=== PATIENT | female | born 1970 | race American Indian/Alaskan Native ===

== ENCOUNTER 2023-12-22 20:09 | Inpatient (IN) ==
[2023-12-22] MEDS ORDERED: IOPAMIDOL 100 ML BOTTLE IV ONE (20:10)
[2023-12-22] MEDS: IPRATROPIUM/ALBUTEROL 3 ML AMPUL.NEB NEB ONE ×2 (20:20→20:40)
[2023-12-22] MEDS: ONDANSETRON 4 MG/2 ML VIAL IV ONE (20:27)
[2023-12-22] MEDS: methylPREDNISolone SOD SUCC 125 MG/2 ML VIAL IV ONE (20:28)
[2023-12-22] MEDS: ALBUTEROL SULFATE 2.5 MG/3 ML NEBULIZER NEB ONE (20:40)
[2023-12-22 21:09] LABS: ALT/SGPT 5 U/L (<40); AST/SGOT 17 U/L (<32); Albumin 4.2 gm/dL (3.2-5.2); Albumin/Globulin Ratio 1.8 (1.0-2.3); Alkaline Phosphatase 90 U/L (39-117); Bilirubin,Total 0.4 mg/dL (0.1-1.0); Blood Urea Nitrogen 8 mg/dL (6-20); Calcium 8.6 mg/dL (8.6-10.4); Carbon Dioxide 24 mmol/L (22-30); Chloride 104 mmol/L (96-108); Globulin 2.4 gm/dL (2.2-3.7); Glomerular Filtration Rate 110; Glucose 98 mg/dL (70-105)
[2023-12-22 21:19] LABS: Basophils # (Auto) 0.09 K/mcL (0.00-0.30); Eosinophils # (Auto) 1.16 K/mcL (0.00-0.70); Eosinophils % (Auto) 12.2 % (0.0-7.0); Hematocrit 42.8 % (34.1-44.9); Hemoglobin 13.9 g/dL (11.2-15.7); Lymphocytes # (Auto) 2.75 K/mcL (1.50-4.80); Mean Cell Volume 91.3 fL (80.0-100.0); Mean Corpuscular HGB Conc 32.5 g/dL (31.0-36.0); Mean Platelet Volume 8.3 fL (8.8-12.5); Monocytes # (Auto) 0.76 K/mcL (0.10-0.90); Neutrophils % (Auto) 49.7 % (38.0-78.0); Platelet Count 272 K/mcL (140-440); RBC 4.69 M/mcL (3.59-5.38); Red Cell Distribution Width 13.3 % (11.5-14.5); WBC 9.5 K/mcL (4.5-11.0)
[2023-12-22] MEDS: morphine 4 MG/ML VIAL IV ONE (22:12)
[2023-12-22] MEDS: LACTATED RINGERS 1,000 ML IV ONE (23:10)
[2023-12-22] MEDS ORDERED: LACTULOSE 20 GM/30 ML ORAL.SOL PO PRN (23:59)
[2023-12-22] MEDS ORDERED: SENNOSIDES 1 TABLET PO PRN (23:59)
[2023-12-23] MEDS: DOXYCYCLINE 100 MG in DEXTROSE 5% IN WATER 100 ML IV SCH (00:13)
[2023-12-23] MEDS: IPRATROPIUM/ALBUTEROL 3 ML AMPUL.NEB NEB PRN (01:27)
[2023-12-23] MEDS: DEXTROSE 5% IN WATER 100 ML IV ONE (01:48)
[2023-12-23] MEDS: NICOTINE 14 MG PATCH ONE (02:12)
[2023-12-23] MEDS: NICOTINE 14 MG PATCH TOPICAL ONE (02:42)
[2023-12-23] MEDS: ACETAMINOPHEN 325 MG TABLET PO PRN (04:07)
[2023-12-23] MEDS: ONDANSETRON 4 MG/2 ML VIAL IV PRN ×2 (04:13→22:12)
[2023-12-23] MEDS: 0.9 % SODIUM CHLORIDE 10 ML SYRINGE IV SCH (06:07)
[2023-12-23] MEDS ORDERED: POLYETHYLENE GLYCOL 3350 17 GM PACKET PO PRN (08:13)
[2023-12-23] MEDS ORDERED: MAGNESIUM SULFATE 2 GM/50 ML BAG IV PRN (08:13)
[2023-12-23] MEDS ORDERED: SENNOSIDES 1 TABLET PO PRN (08:13)
[2023-12-23] MEDS ORDERED: POTASSIUM CHLORIDE 20 MEQ TABLET PO PRN ×2 (08:13)
[2023-12-23] MEDS ORDERED: POTASSIUM CHLORIDE 40 MEQ in DEXTROSE 5% IN WATER 500 ML IV PRN (08:13)
[2023-12-23] MEDS: DOCUSATE SODIUM 100 MG CAPSULE PO SCH (08:42)
[2023-12-23] MEDS: ENOXAPARIN 40 MG/0.4 ML SYRINGE SQ SCH (08:42)
[2023-12-23] MEDS: methylPREDNISolone SOD SUCC 125 MG/2 ML VIAL IV SCH (08:42)
[2023-12-23] MEDS: BUDESONIDE 0.5 MG/2 ML AMPUL.NEB NEB SCH (08:52)
[2023-12-23 09:35] LABS: ALT/SGPT 5 U/L (<40); AST/SGOT 16 U/L (<32); Albumin 4.2 gm/dL (3.2-5.2); Albumin/Globulin Ratio 1.7 (1.0-2.3); Alkaline Phosphatase 91 U/L (39-117); Bilirubin,Direct < 0.2 mg/dL (0-0.3); Bilirubin,Total 0.3 mg/dL (0.1-1.0); Blood Urea Nitrogen 7 mg/dL (6-20); Calcium 8.7 mg/dL (8.6-10.4); Carbon Dioxide 23 mmol/L (22-30); Chloride 102 mmol/L (96-108); Globulin 2.5 gm/dL (2.2-3.7); Glomerular Filtration Rate 103; Glucose 219 mg/dL (70-105); Lactate Dehydrogenase 177 U/L (135-225); Phosphorous 3.8 mg/dL (2.5-4.5); Triglycerides 26 mg/dL (<150)
[2023-12-23] MEDS: HYDROcodone/APAP 5/325MG TABLET PO PRN (11:18)
[2023-12-23] MEDS: NICOTINE 21 MG PATCH TOPICAL SCH (11:18)
[2023-12-23] MEDS: IPRATROPIUM/ALBUTEROL 3 ML AMPUL.NEB NEB SCH (12:50)
[2023-12-23] MEDS: MONTELUKAST 10 MG TABLET PO SCH (20:52)
[2023-12-23] MEDS: FAMOTIDINE 20 MG TABLET PO SCH (22:16)
[2023-12-23] MEDS: METOPROLOL TARTRATE 25 MG TABLET PO ONE (22:16)
[2023-12-23] MEDS: FAMOTIDINE 20 MG TABLET PO ONE (22:18)
[2023-12-23] MEDS: METOPROLOL TARTRATE 25 MG TABLET ONE (22:18)
[2023-12-23] MEDS: LORazepam 2 MG/ML VIAL IV PRN (22:32)
[2023-12-23] MEDS: LORazepam 2 MG/ML VIAL ONE (22:36)
[2023-12-24 06:40] LABS: ALT/SGPT 5 U/L (<40); AST/SGOT 12 U/L (<32); Albumin/Globulin Ratio 1.7 (1.0-2.3); Alkaline Phosphatase 82 U/L (39-117); Bilirubin,Direct < 0.2 mg/dL (0-0.3); Bilirubin,Total < 0.2 mg/dL (0.1-1.0); Blood Urea Nitrogen 13 mg/dL (6-20); Calcium 8.8 mg/dL (8.6-10.4); Carbon Dioxide 26 mmol/L (22-30); Chloride 103 mmol/L (96-108); Globulin 2.4 gm/dL (2.2-3.7); Glomerular Filtration Rate 103; Glucose 184 mg/dL (70-105); Lactate Dehydrogenase 188 U/L (135-225); Phosphorous 4.1 mg/dL (2.5-4.5); Triglycerides 77 mg/dL (<150); Uric Acid 3.1 mg/dL (2.5-8.0)
[2023-12-24] MEDS: methylPREDNISolone SOD SUCC 40 MG/ML VIAL IV SCH (09:05)
[2023-12-24] MEDS: FLUZONE QUAD QS2023-24/PF 60 MCG/0.5 ML SYRINGE IM ONE (11:54)
[2023-12-25] MEDS ORDERED: ALBUTEROL SULFATE 2.5 MG/3 ML NEBULIZER NEB PRN (09:23)
[2023-12-25] MEDS: methylPREDNISolone SOD SUCC 40 MG/ML VIAL IV SCH ×3 (09:51→20:19)
[2023-12-25] MEDS: LEVOFLOXACIN 750 MG/150 ML BAG IV SCH (11:00)
== END 2023-12-26 16:15 | disposition home or self-care (01) | DRG 189 ==
LOC: ED 20:09 → ICU 12-23 01:17 → MEDSUR 12-24 11:30
PROVIDERS: ADMIT Internal Medicine; ATTEND Internal Medicine

== ENCOUNTER 2025-01-23 15:44 | Inpatient (IN) ==
[2025-01-23] MEDS: methylPREDNISolone SOD SUCC 125 MG/2 ML VIAL IV ONE (16:17)
[2025-01-23] MEDS: 0.9 % SODIUM CHLORIDE 1,000 ML IV ONE (16:24)
[2025-01-23] MEDS: MAGNESIUM SULFATE 2 GM/50 ML BAG IV ONE (16:24)
[2025-01-23 16:52] LABS: Basophils # (Auto) 0.06 K/mcL (0.00-0.30); Basophils % (Auto) 0.7 % (0.0-2.0); Eosinophils # (Auto) 0.73 K/mcL (0.00-0.70); Eosinophils % (Auto) 8.1 % (0.0-7.0); Hemoglobin 13.6 g/dL (11.2-15.7); Lymphocytes # (Auto) 1.85 K/mcL (1.50-4.80); Lymphocytes % (Auto) 20.5 % (15.5-49.0); Mean Cell Volume 93.8 fL (80.0-100.0); Mean Corpuscular HGB Conc 30.9 g/dL (31.0-36.0); Mean Platelet Volume 8.5 fL (8.8-12.5); Monocytes # (Auto) 0.56 K/mcL (0.10-0.90); Monocytes % (Auto) 6.2 % (1.0-12.0); Neutrophils % (Auto) 64.3 % (38.0-78.0); Platelet Count 299 K/mcL (140-440); RBC 4.69 M/mcL (3.59-5.38); Red Cell Distribution Width 14.3 % (11.5-14.5)
[2025-01-23 17:01] LABS: Blood Urea Nitrogen 11 mg/dL (6-20); Calcium 8.5 mg/dL (8.6-10.4); Carbon Dioxide 24 mmol/L (22-30); Chloride 102 mmol/L (96-108); Glomerular Filtration Rate 109; Glucose 96 mg/dL (70-105); Potassium 3.8 mmol/L (3.3-5.1); Sodium 138 mmol/L (133-145)
[2025-01-23] MEDS: AZITHROMYCIN 500 MG in 0.9 % SODIUM CHLORIDE 250 ML IV ONE (17:34)
[2025-01-23] MEDS: cefTRIAXone 1 GM VIAL IV ONE (17:34)
[2025-01-23] MEDS: IPRATROPIUM/ALBUTEROL 3 ML AMPUL.NEB NEB ONE ×3 (18:04→18:27)
[2025-01-23 19:28] LABS: C-Reactive Protein < 0.30 mg/dL (0.03-0.80)
[2025-01-23] MEDS: IPRATROPIUM/ALBUTEROL 3 ML AMPUL.NEB NEB SCH (19:51)
[2025-01-23] MEDS ORDERED: NICOTINE POLACRILEX 2 MG GUM CHEW/PARK PRN (20:08)
[2025-01-23] MEDS: 0.9 % SODIUM CHLORIDE 10 ML SYRINGE IV SCH ×2 (20:30→22:46)
[2025-01-23] MEDS ORDERED: DEXTROSE 50% 50 ML VIAL IV PRN (20:30)
[2025-01-23] MEDS ORDERED: DEXTROSE 31 GM ORAL.SUSP PO PRN (20:30)
[2025-01-23] MEDS ORDERED: LORazepam 2 MG/ML VIAL IV PRN (20:30)
[2025-01-23] MEDS ORDERED: POLYETHYLENE GLYCOL 3350 17 GM PACKET PO PRN (20:30)
[2025-01-23] MEDS ORDERED: NALOXONE HCL 0.4 MG/ML VIAL IV PRN (20:30)
[2025-01-23] MEDS ORDERED: SENNOSIDES 1 TABLET PO PRN (20:30)
[2025-01-23] MEDS: DOXYCYCLINE 100 MG in DEXTROSE 5% IN WATER 100 ML IV SCH (21:14)
[2025-01-23] MEDS: INSULIN LISPRO 1 UNIT/0.01 ML UNIT SQ SCH (21:21)
[2025-01-23] MEDS: guaiFENesin/CODEINE 10 ML UDC PO ONE (22:25)
[2025-01-23] MEDS: THIAMINE 200 MG in 0.9 % SODIUM CHLORIDE 50 ML IV SCH (22:29)
[2025-01-23] MEDS: IPRATROPIUM/ALBUTEROL 3 ML AMPUL.NEB NEB PRN (22:31)
[2025-01-23] MEDS: GABAPENTIN 300 MG CAPSULE PO SCH (22:37)
[2025-01-23] MEDS: NEUTRA PHOS 1 PACKET PO SCH (22:40)
[2025-01-23] MEDS: LORazepam 1 MG TABLET PO ONE (22:44)
[2025-01-23] MEDS: LORazepam 1 MG TABLET ONE (22:46)
[2025-01-23] MEDS: POTASSIUM PHOSPHATE 20 MEQ in DEXTROSE 5% IN WATER 250 ML IV SCH (23:22)
[2025-01-23] MEDS: POTASSIUM PHOSPHATE 66 MEQ/15 ML VIAL IV ONE (23:23)
[2025-01-24] MEDS: ONDANSETRON 4 MG/2 ML VIAL IV PRN (01:15)
[2025-01-24 06:15] LABS: Basophils # (Auto) 0.02 K/mcL (0.00-0.30); Basophils % (Auto) 0.3 % (0.0-2.0); Eosinophils # (Auto) 0 K/mcL (0.00-0.70); Eosinophils % (Auto) 0 % (0.0-7.0); Hematocrit 45.6 % (34.1-44.9); Hemoglobin 13.9 g/dL (11.2-15.7); Lymphocytes # (Auto) 1.35 K/mcL (1.50-4.80); Mean Cell Volume 95.6 fL (80.0-100.0); Mean Corpuscular HGB Conc 30.5 g/dL (31.0-36.0); Mean Platelet Volume 8.4 fL (8.8-12.5); Monocytes # (Auto) 0.28 K/mcL (0.10-0.90); Monocytes % (Auto) 3.9 % (1.0-12.0); Neutrophils % (Auto) 76.7 % (38.0-78.0); Platelet Count 299 K/mcL (140-440); RBC 4.77 M/mcL (3.59-5.38); Red Cell Distribution Width 14.4 % (11.5-14.5); WBC 7.1 K/mcL (4.5-11.0)
[2025-01-24 06:48] LABS: C-Reactive Protein < 0.30 mg/dL (0.03-0.80)
[2025-01-24 06:49] LABS: Blood Urea Nitrogen 12 mg/dL (6-20); Calcium 8.7 mg/dL (8.6-10.4); Carbon Dioxide 24 mmol/L (22-30); Chloride 106 mmol/L (96-108); Glomerular Filtration Rate 109; Glucose 117 mg/dL (70-105); Potassium 4.6 mmol/L (3.3-5.1); Sodium 140 mmol/L (133-145)
[2025-01-24 06:50] LABS: Phosphorous 4.7 mg/dL (2.5-4.5); Thyroid Stimulating Hormone 0.48 uIU/mL (0.27-5.01)
[2025-01-24] MEDS: ACETAMINOPHEN 325 MG TABLET PO PRN (07:35)
[2025-01-24] MEDS: PANTOPRAZOLE 40 MG TABLET PO SCH (07:35)
[2025-01-24] MEDS ORDERED: THIAMINE 100 MG/ML VIAL IM SCH (09:00)
[2025-01-24] MEDS: guaiFENesin/CODEINE 10 ML UDC PO PRN (09:22)
[2025-01-24] MEDS: BUDESONIDE 0.5 MG/2 ML AMPUL.NEB NEB SCH (09:56)
[2025-01-24] MEDS: methylPREDNISolone SOD SUCC 125 MG/2 ML VIAL IV SCH (10:24)
[2025-01-24] MEDS: cefTRIAXone 1 GM VIAL IV SCH (10:24)
[2025-01-24] MEDS: FOLIC ACID 1 MG TABLET PO SCH (10:24)
[2025-01-24] MEDS: MULTIVIT,THER IRON,CA,FA & MIN 1 TABLET PO SCH (10:24)
[2025-01-24] MEDS: FLUTICASONE/SALMETEROL 500/50 INHALER #14 INH SCH (10:25)
[2025-01-24] MEDS: ENOXAPARIN 40 MG/0.4 ML SYRINGE SQ SCH (10:25)
[2025-01-24] MEDS: THIAMINE 100 MG in 0.9 % SODIUM CHLORIDE 50 ML IV SCH (10:39)
[2025-01-24] MEDS: NICOTINE 14 MG PATCH TOPICAL PRN (20:15)
[2025-01-24] MEDS: GABAPENTIN 100 MG CAPSULE PO ONE (21:53)
[2025-01-24] MEDS: LORazepam 1 MG TABLET PO ONE (22:01)
[2025-01-25 06:41] LABS: Basophils # (Auto) 0.04 K/mcL (0.00-0.30); Basophils % (Auto) 0.4 % (0.0-2.0); Eosinophils # (Auto) 0.05 K/mcL (0.00-0.70); Eosinophils % (Auto) 0.6 % (0.0-7.0); Hematocrit 40.9 % (34.1-44.9); Hemoglobin 12.2 g/dL (11.2-15.7); Lymphocytes # (Auto) 2.57 K/mcL (1.50-4.80); Lymphocytes % (Auto) 28.7 % (15.5-49.0); Mean Cell Volume 96.9 fL (80.0-100.0); Mean Corpuscular HGB Conc 29.8 g/dL (31.0-36.0); Mean Platelet Volume 8.6 fL (8.8-12.5); Monocytes # (Auto) 0.76 K/mcL (0.10-0.90); Monocytes % (Auto) 8.5 % (1.0-12.0); Neutrophils % (Auto) 61.6 % (38.0-78.0); Platelet Count 268 K/mcL (140-440); RBC 4.22 M/mcL (3.59-5.38); Red Cell Distribution Width 14.7 % (11.5-14.5)
[2025-01-25 06:54] LABS: Blood Urea Nitrogen 21 mg/dL (6-20); Calcium 8.7 mg/dL (8.6-10.4); Carbon Dioxide 26 mmol/L (22-30); Chloride 104 mmol/L (96-108); Glomerular Filtration Rate 109; Glucose 109 mg/dL (70-105); Potassium 4.6 mmol/L (3.3-5.1); Sodium 138 mmol/L (133-145)
[2025-01-25] MEDS: DIAZEPAM 10 MG/2 ML SYRINGE IV PRN (09:42)
[2025-01-25] MEDS: MONTELUKAST 10 MG TABLET PO SCH (09:43)
[2025-01-25] MEDS: FLUTICASONE PROPIONATE SPRAY.NAS NS SCH (09:43)
[2025-01-25] MEDS: GABAPENTIN 300 MG CAPSULE PO SCH ×2 (09:43→14:54)
[2025-01-25] MEDS: CETIRIZINE 10 MG TABLET PO SCH (09:43)
[2025-01-25] MEDS: GABAPENTIN 300 MG CAPSULE PO ONE (12:11)
[2025-01-26 06:07] LABS: Basophils # (Auto) 0.06 K/mcL (0.00-0.30); Basophils % (Auto) 0.7 % (0.0-2.0); Eosinophils # (Auto) 0.03 K/mcL (0.00-0.70); Eosinophils % (Auto) 0.3 % (0.0-7.0); Hematocrit 40.7 % (34.1-44.9); Hemoglobin 12.6 g/dL (11.2-15.7); Lymphocytes # (Auto) 2.87 K/mcL (1.50-4.80); Lymphocytes % (Auto) 31.9 % (15.5-49.0); Mean Cell Volume 94.7 fL (80.0-100.0); Mean Platelet Volume 8.7 fL (8.8-12.5); Monocytes # (Auto) 0.86 K/mcL (0.10-0.90); Monocytes % (Auto) 9.6 % (1.0-12.0); Neutrophils % (Auto) 57.2 % (38.0-78.0); Platelet Count 284 K/mcL (140-440); Red Cell Distribution Width 14.8 % (11.5-14.5)
[2025-01-26 07:01] LABS: ALT/SGPT 23 U/L (<40); AST/SGOT 17 U/L (<32); Albumin 3.7 gm/dL (3.2-5.2); Albumin/Globulin Ratio 1.5 (1.0-2.3); Alkaline Phosphatase 67 U/L (39-117); Bilirubin,Direct < 0.2 mg/dL (0-0.3); Bilirubin,Total 0.2 mg/dL (0.1-1.0); Blood Urea Nitrogen 21 mg/dL (6-20); Calcium 8.6 mg/dL (8.6-10.4); Carbon Dioxide 30 mmol/L (22-30); Chloride 102 mmol/L (96-108); Globulin 2.4 gm/dL (2.2-3.7); Glomerular Filtration Rate 103; Glucose 97 mg/dL (70-105); Lactate Dehydrogenase 176 U/L (135-225); Phosphorous 3.8 mg/dL (2.5-4.5); Potassium 4.4 mmol/L (3.3-5.1); Sodium 140 mmol/L (133-145); Triglycerides 67 mg/dL (<150); Uric Acid 3.2 mg/dL (2.5-8.0)
[2025-01-26] MEDS: methylPREDNISolone SOD SUCC 40 MG/ML VIAL IV SCH (10:28)
[2025-01-26] MEDS: DIAZEPAM 10 MG TABLET PO SCH (10:50)
[2025-01-26] MEDS: IPRATROPIUM/ALBUTEROL 3 ML AMPUL.NEB NEB SCH (12:21)
[2025-01-26] MEDS: METHOCARBAMOL 1,000 MG/10 ML VIAL IV SCH (12:51)
[2025-01-26] MEDS: GABAPENTIN 300 MG CAPSULE PO SCH ×2 (17:08→21:18)
[2025-01-27 05:52] LABS: Basophils # (Auto) 0.04 K/mcL (0.00-0.30); Basophils % (Auto) 0.5 % (0.0-2.0); Eosinophils # (Auto) 0.04 K/mcL (0.00-0.70); Eosinophils % (Auto) 0.5 % (0.0-7.0); Hematocrit 41.2 % (34.1-44.9); Hemoglobin 12.6 g/dL (11.2-15.7); Lymphocytes # (Auto) 2.71 K/mcL (1.50-4.80); Mean Corpuscular HGB Conc 30.6 g/dL (31.0-36.0); Mean Platelet Volume 8.2 fL (8.8-12.5); Monocytes # (Auto) 0.61 K/mcL (0.10-0.90); Monocytes % (Auto) 7.6 % (1.0-12.0); Platelet Count 264 K/mcL (140-440); RBC 4.29 M/mcL (3.59-5.38); Red Cell Distribution Width 14.9 % (11.5-14.5)
[2025-01-27] MEDS: DIAZEPAM 10 MG/2 ML SYRINGE IV ONE (06:17)
[2025-01-27] MEDS: DEXMEDETOMIDINE 400 MCG in PREMIX 1 BAG IV SCH (06:26)
[2025-01-27 06:41] LABS: ALT/SGPT 23 U/L (<40); AST/SGOT 15 U/L (<32); Albumin 3.6 gm/dL (3.2-5.2); Albumin/Globulin Ratio 1.5 (1.0-2.3); Alkaline Phosphatase 66 U/L (39-117); Bilirubin,Direct < 0.2 mg/dL (0-0.3); Bilirubin,Total < 0.2 mg/dL (0.1-1.0); Blood Urea Nitrogen 19 mg/dL (6-20); Calcium 8.7 mg/dL (8.6-10.4); Carbon Dioxide 29 mmol/L (22-30); Chloride 102 mmol/L (96-108); Globulin 2.4 gm/dL (2.2-3.7); Glomerular Filtration Rate 103; Glucose 112 mg/dL (70-105); Lactate Dehydrogenase 153 U/L (135-225); Phosphorous 4.5 mg/dL (2.5-4.5); Potassium 4.2 mmol/L (3.3-5.1); Sodium 141 mmol/L (133-145); Triglycerides 92 mg/dL (<150); Uric Acid 3.1 mg/dL (2.5-8.0)
[2025-01-27] MEDS: DEXMEDETOMIDINE 100 ML IV ONE ×2 (06:55→15:41)
[2025-01-27] MEDS: LORazepam 2 MG/ML VIAL IV ONE ×3 (08:37→23:15)
[2025-01-27] MEDS: LORazepam 2 MG/ML VIAL ONE ×4 (08:45→23:25)
[2025-01-27] MEDS: LORazepam 2 MG/ML VIAL IV SCH ×3 (09:37→13:50)
[2025-01-27] MEDS ORDERED: IOPAMIDOL 100 ML BOTTLE IV ONE (11:31)
[2025-01-27] MEDS: LACTATED RINGERS 1,000 ML IV ONE ×2 (11:48→12:54)
[2025-01-27] MEDS ORDERED: NOREPINEPHRINE BITARTRATE 16 MG in 0.9 % SODIUM CHLORIDE 234 ML IV SCH (12:45)
[2025-01-27] MEDS: 0.9 % SODIUM CHLORIDE 250 ML IV SCH (13:52)
[2025-01-27] MEDS: NOREPINEPHRINE 250 ML IV SCH (13:53)
[2025-01-27] MEDS: cefTRIAXone 1 GM VIAL IV ONE (22:15)
[2025-01-27] MEDS: METHOCARBAMOL 1,000 MG/10 ML VIAL IV ONE (23:24)
[2025-01-27] MEDS: cefTRIAXone 1 GM VIAL ONE (23:25)
[2025-01-27] MEDS: DOXYCYCLINE HYCLATE 100 MG TABLET.ORL PO SCH (23:25)
[2025-01-27] MEDS: DOXYCYCLINE 100 MG in DEXTROSE 5% IN WATER 100 ML IV ONE (23:26)
[2025-01-27] MEDS: CEFDINIR 300 MG CAPSULE PO SCH (23:26)
[2025-01-27] MEDS: morphine 2 MG/ML VIAL IV ONE (23:28)
[2025-01-27] MEDS: NICOTINE 21 MG PATCH TOPICAL ONE (23:28)
[2025-01-27] MEDS: METHOCARBAMOL 1,000 MG/10 ML VIAL ONE (23:32)
[2025-01-27] MEDS: morphine 4 MG/ML VIAL ONE (23:32)
[2025-01-27] MEDS: NICOTINE 21 MG PATCH ONE (23:32)
[2025-01-28] MEDS: DEXMEDETOMIDINE 100 ML IV ONE ×6 (03:08→21:43)
[2025-01-28 08:05] LABS: Basophils # (Auto) 0.02 K/mcL (0.00-0.30); Basophils % (Auto) 0.3 % (0.0-2.0); Eosinophils # (Auto) 0.31 K/mcL (0.00-0.70); Hematocrit 41.9 % (34.1-44.9); Hemoglobin 12.8 g/dL (11.2-15.7); Lymphocytes # (Auto) 1.91 K/mcL (1.50-4.80); Lymphocytes % (Auto) 24.6 % (15.5-49.0); Mean Cell Volume 94.6 fL (80.0-100.0); Mean Corpuscular HGB Conc 30.5 g/dL (31.0-36.0); Mean Platelet Volume 8.3 fL (8.8-12.5); Monocytes # (Auto) 0.65 K/mcL (0.10-0.90); Monocytes % (Auto) 8.4 % (1.0-12.0); Neutrophils % (Auto) 62.4 % (38.0-78.0); Platelet Count 284 K/mcL (140-440); RBC 4.43 M/mcL (3.59-5.38); Red Cell Distribution Width 14.3 % (11.5-14.5); WBC 7.8 K/mcL (4.5-11.0)
[2025-01-28 08:19] LABS: ALT/SGPT 74 U/L (<40); AST/SGOT 68 U/L (<32); Albumin 3.5 gm/dL (3.2-5.2); Albumin/Globulin Ratio 1.6 (1.0-2.3); Alkaline Phosphatase 77 U/L (39-117); Bilirubin,Direct < 0.2 mg/dL (0-0.3); Bilirubin,Total 0.4 mg/dL (0.1-1.0); Blood Urea Nitrogen 17 mg/dL (6-20); Calcium 8.3 mg/dL (8.6-10.4); Carbon Dioxide 30 mmol/L (22-30); Chloride 102 mmol/L (96-108); Globulin 2.2 gm/dL (2.2-3.7); Glomerular Filtration Rate 103; Glucose 116 mg/dL (70-105); Lactate Dehydrogenase 192 U/L (135-225); Phosphorous 4.2 mg/dL (2.5-4.5); Potassium 4.9 mmol/L (3.3-5.1); Sodium 139 mmol/L (133-145); Triglycerides 90 mg/dL (<150); Uric Acid 3.9 mg/dL (2.5-8.0)
[2025-01-28] MEDS: LORazepam 2 MG/ML VIAL IV SCH (08:50)
[2025-01-28] MEDS: diphenhydrAMINE 50 MG/ML VIAL ONE (10:24)
[2025-01-28] MEDS: HALOPERIDOL LACTATE 5 MG/ML VIAL ONE (10:24)
[2025-01-28] MEDS: HALOPERIDOL LACTATE 5 MG/ML VIAL IV SCH (10:25)
[2025-01-28] MEDS: diphenhydrAMINE 50 MG/ML VIAL IV SCH (10:25)
[2025-01-28] MEDS: LORazepam 2 MG/ML VIAL ONE ×2 (10:32→10:35)
[2025-01-28] MEDS: LACTATED RINGERS 1,000 ML IV SCH (10:40)
[2025-01-28] MEDS: predniSONE 20 MG TABLET PO SCH (11:22)
[2025-01-29] MEDS: DEXMEDETOMIDINE 100 ML IV ONE ×6 (00:11→21:21)
[2025-01-29] MEDS: PREMIX 1 BAG IV ONE (05:28)
[2025-01-29 06:33] LABS: ALT/SGPT 53 U/L (<40); AST/SGOT 32 U/L (<32); Albumin 3.3 gm/dL (3.2-5.2); Albumin/Globulin Ratio 1.6 (1.0-2.3); Alkaline Phosphatase 81 U/L (39-117); Bilirubin,Direct 0.3 mg/dL (<0.3); Bilirubin,Total 0.5 mg/dL (0.1-1.0); Blood Urea Nitrogen 12 mg/dL (6-20); Calcium 8.2 mg/dL (8.6-10.4); Carbon Dioxide 29 mmol/L (22-30); Chloride 103 mmol/L (96-108); Globulin 2.1 gm/dL (2.2-3.7); Glomerular Filtration Rate 109; Glucose 108 mg/dL (70-105); Lactate Dehydrogenase 230 U/L (135-225); Phosphorous 3.6 mg/dL (2.5-4.5); Potassium 4.3 mmol/L (3.3-5.1); Sodium 141 mmol/L (133-145); Triglycerides 95 mg/dL (<150); Uric Acid 4.1 mg/dL (2.5-8.0)
[2025-01-29] MEDS: PHENobarbital SOD 130 MG/ML VIAL IV SCH (10:38)
[2025-01-30] MEDS: DEXMEDETOMIDINE 100 ML IV ONE ×4 (01:16→08:47)
[2025-01-30 06:33] LABS: ALT/SGPT 40 U/L (<40); AST/SGOT 25 U/L (<32); Albumin 3.2 gm/dL (3.2-5.2); Albumin/Globulin Ratio 1.4 (1.0-2.3); Alkaline Phosphatase 81 U/L (39-117); Bilirubin,Direct 0.2 mg/dL (<0.3); Bilirubin,Total 0.5 mg/dL (0.1-1.0); Blood Urea Nitrogen 10 mg/dL (6-20); Calcium 8.2 mg/dL (8.6-10.4); Carbon Dioxide 26 mmol/L (22-30); Chloride 103 mmol/L (96-108); Globulin 2.3 gm/dL (2.2-3.7); Glomerular Filtration Rate 117; Glucose 97 mg/dL (70-105); Lactate Dehydrogenase 185 U/L (135-225); Phosphorous 3.3 mg/dL (2.5-4.5); Potassium 4.2 mmol/L (3.3-5.1); Sodium 139 mmol/L (133-145); Triglycerides 93 mg/dL (<150); Uric Acid 4.4 mg/dL (2.5-8.0)
[2025-01-30] MEDS: PANTOPRAZOLE 40 MG VIAL IV SCH (09:06)
[2025-01-30] MEDS: methylPREDNISolone SOD SUCC 40 MG/ML VIAL IV SCH (09:06)
[2025-01-30] MEDS: LACTULOSE 20 GM/30 ML ORAL.SOL PO PRN (10:05)
[2025-01-30] MEDS: HYDROcodone/APAP 5/325MG TABLET PO PRN (12:31)
[2025-01-30] MEDS: chlordiazePOXIDE 25 MG CAPSULE PO PRN (23:46)
[2025-01-31] MEDS ORDERED: DIAZEPAM 10 MG/2 ML SYRINGE IV PRN (07:47)
[2025-01-31] MEDS: predniSONE 20 MG TABLET PO SCH (09:00)
[2025-01-31] MEDS: PANTOPRAZOLE 40 MG TABLET PO SCH (09:00)
[2025-01-31] MEDS: THIAMINE 100 MG TABLET PO SCH (09:00)
[2025-01-31] MEDS: METHOCARBAMOL 1,000 MG/10 ML VIAL IV ONE (12:50)
[2025-01-31] MEDS: GABAPENTIN 300 MG CAPSULE PO SCH (16:04)
[2025-02-01] MEDS: BISMUTH SUBSALICYLATE 15 ML ORAL.SUSP PO ONE (08:57)
[2025-02-01 10:09] VITALS: O2SAT 94
[2025-02-01 11:26] VITALS: TEMP 98.8
== END 2025-02-01 10:44 | disposition home or self-care (01) | DRG 189 ==
LOC: ED 15:44 → ICU 20:25
PROVIDERS: ADMIT Student in an Organized Health Care Education/Training Program; ATTEND Internal Medicine